=== PATIENT | male | born 1975 | race Caucasian/White ===

== ENCOUNTER 2020-04-22 16:12 | Emergency (ER) | payer OTHER ==
[~2020-04-22] VITALS: Ht 182.9 cm; Wt 88.5 kg
[2020-04-22 16:26] VITALS: BP 151/78
== END 2020-04-22 17:13 | disposition home or self-care (01) ==
LOC: ER 16:12
DX: F20.9 Schizophrenia, unspecified (principal); Z76.0 Encounter for issue of repeat prescription